=== PATIENT | male | born 1950 | race Caucasian/White ===

== ENCOUNTER → 2017-01-22 | Outpatient (CLI) | payer OTHER ==
[~2017-01-22] MED LIST: ZLFUNK
--- NOTE | 2017-01-22 16:25 | DIAGNOSTIC IMAGING REPORT ---
RIGHT FOOT 3 VIEWS HISTORY: HEBERDEN'S NODES Right COMPARISON: None. FINDINGS: There is no fracture or dislocation. Soft tissues are unremarkable. Severe cartilage space narrowing with [id number] articulation and subchondral sclerosis at the first MTP joint consistent with degenerative change. Large osteophytes at the lateral/plantar aspect of the head of the first metatarsal with possible fusion of the lateral sesamoid bone. Mild osteoarthritis within the DIP joints of the toes. The fifth DIP joint is fused. IMPRESSION: 1. No fractures within the right foot. 2. 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 There is a large osteophyte at the head of the first metatarsal with possible fusion of the lateral sesamoid bone Electronically signed by: Seth Schafer M.D. 01/22/2017 4:24 PM Dictated Date/Time: 01/22/2017 4:20 PM
--- NOTE | 2017-01-22 16:54 | DIAGNOSTIC IMAGING REPORT ---
RIGHT HAND MIN 3 VIEWS ROUTINE CLINICAL HISTORY: Osteoarthrosis. COMPARISON: None FINDINGS: Alignment of the right hand is in anatomic. There is no fracture or suspicious lesion. There is marked joint space narrowing with moderate osteophytosis of the distal interphalangeal joint of the second finger. There is mild soft tissue swelling. No erosions are identified. Mild to moderate osteoarthritis is noted within multiple additional articulations of the right hand. IMPRESSION: Severe osteoarthritis of the distal interphalangeal joint of the right second finger with mild to moderate osteoarthritis within multiple additional articulations of the right hand. Electronically signed by: Gerardo Herrera M.D. 01/22/2017 4:52 PM Dictated Date/Time: 01/22/2017 4:50 PM
== END | disposition home or self-care (01) ==
LOC: C.RAD 15:58
PROVIDERS: ATTEND Family Medicine
DX: M19.041 Primary osteoarthritis, right hand (principal); M19.071 Primary osteoarthritis, right ankle and foot; Z87.2 Personal history of diseases of the skin and subcutaneous tissue